=== PATIENT | male | born 1940 | race Caucasian/White ===

== ENCOUNTER 2016-11-12 06:41 | Observation (INO) | payer MEDICARE, OTHER ==
[2016-11-12] MEDS ORDERED: ASPIRIN 81 MG TABLET, CHEWABLE PO ONE (07:03)
[2016-11-12 07:21] LABS: PROTHROMBIN TIME 12.7 SEC (11.4-15.4)
[2016-11-12 07:25] LABS: ABSOLUTE BASOPHILS # (AUTO) 0.1 10^3/uL (0.0-0.2); ABSOLUTE EOSINOPHILS # (AUTO) 0.3 10^3/uL (0.0-0.6); ABSOLUTE LYMPHOCYTES (AUTO) 3.3 10^3/uL (0.5-4.7); ABSOLUTE MONOCYTES (AUTO) 0.8 10^3/uL (0.1-1.4); ABSOLUTE NEUT (AUTO) 6.2 10^3/uL (1.7-8.2); BASOPHILS % (AUTO) 0.9 % (0-2); HEMATOCRIT 38.2 % (37.9-51.0); HEMOGLOBIN 13.1 g/dL (13.5-17.0); HGB HCT DIFFERENCE 1.1; LYMPHOCYTES % (AUTO) 31.1 % (13-45); MEAN CORPUSCULAR HEMOGLOBIN 32.6 pg (27.0-33.4); MEAN CORPUSCULAR HGB CONC 34.2 g/dL (32.0-36.0); MEAN CORPUSCULAR VOLUME 95 fl (80-97); MONOCYTES % (AUTO) 7.2 % (3-13); RED BLOOD COUNT 4.01 10^6/uL (4.35-5.55); RED CELL DISTRIBUTION WIDTH 14.2 % (11.5-14.0); SEGMENTED NEUTROPHILS % (AUTO) 57.8 % (42-78); WHITE BLOOD COUNT 10.7 10^3/uL (4.0-10.5)
[2016-11-12 07:26] LABS: ALANINE AMINOTRANSFERASE 29 U/L (21-72); ALKALINE PHOSPHATASE 94 U/L (38-126); ANION GAP 11 (5-19); ASPARTATE AMINO TRANSFERASE 20 U/L (17-59); BILIRUBIN,TOTAL 0.6 mg/dL (0.2-1.3); BLOOD UREA NITROGEN 11 mg/dL (7-20); CALCIUM 9.6 mg/dL (8.4-10.2); CARBON DIOXIDE 26 mmol/L (22-30); CHLORIDE 103 mmol/L (98-107); CREATINE KINASE 49 U/L (55-170); CREATININE RESULT 0.82 mg/dL (0.52-1.25); GLUCOSE 160 mg/dL (75-110); LIPASE 54.1 U/L (23-300); MAGNESIUM 1.6 mg/dL (1.6-2.3); POTASSIUM 4.1 mmol/L (3.6-5.0)
[2016-11-12 07:37] LABS: CREATINE KINASE MB 1.59 ng/mL (<4.55)
[2016-11-12 07:41] LABS: TROPONIN I 0.078 ng/mL
--- NOTE | 2016-11-12 07:48 | ER Document Report ---
ED General - General Chief Complaint: Chest Pain Stated Complaint: CHEST PAIN - HPI Patient complains to provider of: chest pain Notes: Patient is coming in from local [facility] facility for evaluation of chest pain patient apparently has a history of dementia otherwise is alert states that he has had stents and cardiac testing in the past states chest pain substernal no radiation lasted for approximately an hour. EMS report otherwise only confirms the above patient complaining of chest pain. Pack of the paperwork that came with the patient shows possible recent admission to local hospital in [facility]. In talking to with the patient he is alert otherwise mildly confused. Patient states he is pain-free at this time. - Related Data Allergies/Adverse Reactions: acetaminophen [From Percocet] Adverse Reaction (Verified 11/12/16 07:37) atorvastatin [From Lipitor] Adverse Reaction (Verified 11/12/16 07:37) hydrochlorothiazide Adverse Reaction (Verified 11/12/16 07:37) oxycodone [From Percocet] Adverse Reaction (Verified 11/12/16 07:37) prednisone Adverse Reaction (Verified 11/12/16 07:37) simvastatin [From Zocor] Adverse Reaction (Verified 11/12/16 07:37) tramadol Adverse Reaction (Verified 11/12/16 07:37) zolpidem [From Ambien] Adverse Reaction (Verified 11/12/16 07:37) Home Medications: Current Home Medications Albuterol Sulfate [Proair HFA] 1 puff IH Q4HP PRN 11/12/16 [History] Aspirin [Ecotrin] 81 mg PO DAILY 11/12/16 [History] Cholecalciferol (Vitamin D3) [Vitamin D3 2000 unit Tablet] 4,000 unit PO DAILY 11/12/16 [History] Cyclobenzaprine HCl [Flexeril 10 mg Tablet] 5 mg PO TIDP PRN 11/12/16 [History] Escitalopram Oxalate [Lexapro] 20 mg PO DAILY 11/12/16 [History] Finasteride [Proscar] 5 mg PO DAILY 11/12/16 [History] Hydrochlorothiazide [Hydrodiuril 12.5 mg Capsule] 12.5 mg PO DAILY 11/12/16 [ History] Insulin Detemir [Levemir Flextouch] 42 units SQ QAM 11/12/16 [History] Liraglutide [Victoza 2-Vaughn] 1.8 mg SQ DAILY 11/12/16 [History] Lorazepam [Ativan] 1 mg PO QHS 11/12/16 [History] Metformin HCl [Metformin HCl ER] 1,000 mg PO BIDACBS 11/12/16 [History] Metoprolol Succinate [Toprol Xl 50 mg Tab.sr] 50 mg PO DAILY 11/12/16 [History] Nitroglycerin [Nitrostat 0.4 mg (1/150 Gr) Tabs 25/Bottle] 0.4 mg SL Q5MP PRN [History] Pitavastatin Calcium [Livalo] 4 mg PO QHS 11/12/16 [History] Quetiapine Fumarate [Seroquel 100 mg Tablet] 100 mg PO QHS 11/12/16 [History] Ramipril [Altace 10 mg Capsule] 10 mg PO QHS 11/12/16 [History] Ticagrelor [Brilinta] 90 mg PO Q12 11/12/16 [History] Past Medical History - Social History Smoking Status: Unknown if Ever Smoked Family History: Reviewed & Not Pertinent Review of Systems - Review of Systems -: Yes ROS unobtainable due to patient's medical condition - Dementia Physical Exam - Vital signs Vitals: Resp Pulse Ox 16 98 11/12/16 06:45 11/12/16 06:45 Interpretation: Normal - General General appearance: Appears well, Alert - HEENT Head: Normocephalic, Atraumatic Eyes: Normal Pupils: PERRL - Respiratory Respiratory status: No respiratory distress Chest status: Nontender Breath sounds: Normal Chest palpation: Normal - Cardiovascular Rhythm: Regular Heart sounds: Normal auscultation Murmur: No - Abdominal Inspection: Normal Distension: No distension Bowel sounds: Normal Tenderness: Nontender Organomegaly: No organomegaly - Back Back: Normal, Nontender - Extremities General upper extremity: Normal inspection, Nontender, Normal color, Normal ROM , Normal temperature General lower extremity: Normal inspection, Nontender, Normal color, Normal ROM , Normal temperature, Normal weight bearing. No: Jackeline's sign - Neurological Neuro grossly intact: Yes Armani Coma Scale Eye Opening: Spontaneous Armani Coma Scale Verbal: Confused Armani Coma Scale Motor: Obeys Commands Armani Coma Scale Total: 14 Speech: Normal Motor strength normal: LUE, RUE, LLE, RLE Sensory: Normal - Psychological Associated symptoms: Normal affect, Normal mood - Skin Skin Temperature: Warm Skin Moisture: Dry Skin Color: Normal Course - Re-evaluation Re-evalutation: 11/12/16 09:19 Patient initially arrived chest pain-free. Lab work performed EKG showed left bundle branch block. Records were obtained from [facility] for patient was recently admitted for psych be hyperosmolar encephalopathy due to poorly controlled diabetes. It is documented patient how a bundle branch block at that time. Upon reevaluation patient states he was having a little bit of left-sided chest pain. Nitrate was ordered for the patient patient did prescribe him chest pain- free with Nitropaste. Review the patient's past medical history from the report from [facility] shows the patient has had a stent drug-eluting and the RCA he's had bypass surgery unknown number of vessels with a aortic valve replacement. Possible tissue replacement as that patient is not on any anticoagulation nor does he have any significant heart murmur. Discussed with our hospitalist team. Will omit the patient for further evaluation 11/12/16 14:10 - Vital Signs Vital signs: Temp Pulse Resp BP Pulse Ox 98 F 14 134/66 H 96 11/12/16 07:30 11/12/16 13:01 11/12/16 13:01 11/12/16 13:01 - Laboratory Result Diagrams: 11/12/16 06:50 11/12/16 06:50 Laboratory results interpreted by me: 11/12/16 11/12/16 11/12/16 06:50 06:50 06:50 WBC 10.7 H RBC 4.01 L Hgb 13.1 L RDW 14.2 H Glucose 160 H Creatine Kinase 49 L NT-Pro-B Natriuret Pep 852 H Discharge - Discharge Clinical Impression: Vascular dementia Qualifiers: Dementia behavioral disturbance: without behavioral disturbance Qualified Code( s): F01.50 - Vascular dementia without behavioral disturbance Chest pain Qualifiers: Chest pain type: unspecified Qualified Code(s): R07.9 - Chest pain, unspecified Condition: Good Disposition: ADMITTED OBSERVATION Admitting Provider: Gretchen[facility] Unit Admitted: Telemetry
--- NOTE | 2016-11-12 08:05 | EKG REPORT ---
SEVERITY:- ABNORMAL ECG - SINUS RHYTHM VENTRICULAR PREMATURE COMPLEX LEFT BUNDLE BRANCH BLOCK : Confirmed by: Anshul Taylor MD 12-Nov-2016 08:04:27
[2016-11-12] MEDS ORDERED: NITROGLYCERIN 2% OINTMENT 1 GM PACKET TP ONE (08:36)
[2016-11-12] MEDS ORDERED: ONDANSETRON HCL INJ/PF 4 MG/2 ML SDV IV PRN (11:04)
--- NOTE | 2016-11-12 11:29 | PDOC H&P ---
History of Present Illness Admission Date/PCP: 11/12/16 10:47 Patient complains of: Chest pain History of Present Illness: REJI DEL ROSARIO is a 76 year old male, with diabetes, coronary artery disease, hypertension, presents to the hospital with chest pain earlier today. Patient is a patient from [facility] where he developed chest pain and was sent to the emergency room for evaluation. Chest pain is left-sided, with associated numbness in the right hand, without any shortness of breath, nor diaphoresis, nor palpitation. No nausea or vomiting. No dizziness or lightheadedness. The patient was evaluated by the emergency room physician. Aspirin and nitroglycerin was given and the chest pain resolved. Patient was then referred for observation. Past Medical History Past Medical History: Medication reconciliation pending verification from the patient's pharmacy. Cardiac Medical History: Reports: Coronary Artery Disease, Hyperlipidema, Hypertension Pulmonary Medical History: Reports: Chronic Obstructive Pulmonary Disease (COPD) Endocrine Medical History: Reports: Diabetes Mellitus Type 2 Past Surgical History Past Surgical History: Reports: Cardiac Catheterization, Coronary Artery Bypass Graft, Hip Replacement Social History Information Source: Patient Smoking Status: Former Smoker Last Time Smoked: 40 years ago Frequency of Alcohol Use: Occasional Hx Recreational Drug Use: No Drugs: None Hx Prescription Drug Abuse: No Family History Family History: None Parental Family History Reviewed: Yes Children Family History Reviewed: Yes Sibling(s) Family History Reviewed.: Yes Medication/Allergy Allergies/Adverse Reactions: acetaminophen [From Percocet] Adverse Reaction (Verified 11/12/16 07:37) atorvastatin [From Lipitor] Adverse Reaction (Verified 11/12/16 07:37) hydrochlorothiazide Adverse Reaction (Verified 11/12/16 07:37) oxycodone [From Percocet] Adverse Reaction (Verified 11/12/16 07:37) prednisone Adverse Reaction (Verified 11/12/16 07:37) simvastatin [From Zocor] Adverse Reaction (Verified 11/12/16 07:37) tramadol Adverse Reaction (Verified 11/12/16 07:37) zolpidem [From Ambien] Adverse Reaction (Verified 11/12/16 07:37) Review of Systems Constitutional: ABSENT: chills, fever(s), headache(s), weight gain, weight loss Eyes: ABSENT: visual disturbances Ears: ABSENT: hearing changes Nose, Mouth, and Throat: ABSENT: mouth pain, sore throat Cardiovascular: PRESENT: chest pain. ABSENT: dyspnea on exertion, edema, orthropnea, palpitations Respiratory: ABSENT: cough, hemoptysis Gastrointestinal: ABSENT: abdominal pain, constipation, diarrhea, hematemesis, hematochezia, melena, nausea, vomiting Genitourinary: ABSENT: dysuria, hematuria Musculoskeletal: ABSENT: joint swelling Integumentary: ABSENT: pruritus, rash, wounds Neurological: ABSENT: abnormal gait, abnormal speech, confusion, dizziness, focal weakness, syncope Psychiatric: ABSENT: anxiety, depression, homidical ideation, suicidal ideation Endocrine: ABSENT: cold intolerance, heat intolerance, polydipsia, polyuria Hematologic/Lymphatic: ABSENT: easy bleeding, easy bruising Physical Exam Vital Signs: Temp Pulse Resp BP Pulse Ox 98 F 18 162/100 H 94 11/12/16 07:30 11/12/16 09:02 11/12/16 09:02 11/12/16 09:02 General appearance: PRESENT: no acute distress, morbidly obese Head exam: PRESENT: atraumatic, normocephalic Eye exam: PRESENT: conjunctiva pink, EOMI, PERRLA. ABSENT: scleral icterus Ear exam: PRESENT: normal external ear exam Mouth exam: PRESENT: moist, neck supple, tongue midline Neck exam: ABSENT: carotid bruit, JVD, lymphadenopathy, thyromegaly Respiratory exam: PRESENT: clear to auscultation beatrice, other - No tenderness elicited in the chest wall. ABSENT: rales, rhonchi, wheezes Cardiovascular exam: PRESENT: RRR. ABSENT: diastolic murmur, rubs, systolic murmur Pulses: PRESENT: normal dorsalis pedis pul Vascular exam: PRESENT: normal capillary refill GI/Abdominal exam: PRESENT: normal bowel sounds, soft. ABSENT: distended, guarding, mass, organolmegaly, rebound, tenderness Rectal exam: PRESENT: deferred Extremities exam: PRESENT: full ROM. ABSENT: calf tenderness, clubbing, pedal edema Neurological exam: PRESENT: alert, awake, oriented to person, oriented to place , oriented to situation Psychiatric exam: PRESENT: appropriate affect, normal mood. ABSENT: homicidal ideation, suicidal ideation Skin exam: PRESENT: dry, intact, warm. ABSENT: cyanosis, rash Results Impressions: Chest X-Ray 11/12/16 07:03 IMPRESSION: NO ACUTE RADIOGRAPHIC FINDING IN THE CHEST. Assessment & Plan - Diagnosis (1) Chest pain Qualifiers: Chest pain type: unspecified Qualified Code(s): R07.9 - Chest pain, unspecified Is this a current diagnosis for this admission?: Yes (2) Vascular dementia Qualifiers: Dementia behavioral disturbance: without behavioral disturbance Qualified Code(s): F01.50 - Vascular dementia without behavioral disturbance Is this a current diagnosis for this admission?: Yes (3) Diabetes mellitus Qualifiers: Diabetes mellitus type: type 2 Diabetes mellitus complication status: with unspecified complications Diabetes mellitus long term care pharmacist insulin use: unspecified long term care pharmacist insulin use status Qualified Code(s): E11.8 - Type 2 diabetes mellitus with unspecified complications Is this a current diagnosis for this admission?: Yes (4) Hypertension Qualifiers: Hypertension type: essential hypertension Qualified Code(s): I10 - Essential (primary) hypertension Is this a current diagnosis for this admission?: Yes (5) Coronary artery disease Qualifiers: Coronary Disease-Associated Artery/Lesion type: [place] artery [place] vs. transplanted heart: unspecified whether barrow or transplanted heart Associated angina: angina presence unspecified Qualified Code(s): I25.10 - Atherosclerotic heart disease of [place] coronary artery without angina pectoris Is this a current diagnosis for this admission?: Yes (6) COPD (chronic obstructive pulmonary disease) Qualifiers: COPD type: unspecified COPD Qualified Code(s): J44.9 - Chronic obstructive pulmonary disease, unspecified Is this a current diagnosis for this admission?: Yes - Time Time Spent: 30 to 50 Minutes - Plan Summary Plan Summary: Patient will be admitted to observation. We will continue aspirin and nitroglycerin. Supplemental oxygen will be given. DVT prophylaxis with Lovenox will be placed. We will obtain cardiac enzymes 3 and if negative will proceed with a stress test. Further testing depends on the admission evaluation as outlined above.
[2016-11-12 13:02] LABS: CREATINE KINASE MB 1.19 ng/mL (<4.55); TROPONIN I 0.055 ng/mL
[2016-11-12] MEDS: NITROGLYCERIN 2% OINTMENT 1 GM PACKET TP SCH ×2 (13:02→18:11)
--- NOTE | 2016-11-12 15:31 | EKG REPORT ---
SEVERITY:- ABNORMAL ECG - PACEMAKER ATRIAL SPIKES , APVS. MULTIFORM VENTRICULAR PREMATURE COMPLEXES LEFT BUNDLE BRANCH BLOCK : Confirmed by: Anshul Taylor MD 12-Nov-2016 15:30:48
[2016-11-12] MEDS ORDERED: DOCUSATE SODIUM 100 MG CAPSULE PO SCH (18:00)
[2016-11-12 20:08] LABS: CREATINE KINASE MB 1.36 ng/mL (<4.55); TROPONIN I 0.055 ng/mL
[2016-11-12 23:02] VITALS: BP 155/79
[2016-11-13] MEDS ORDERED: LANSOPRAZOLE 30 MG TAB.RAP.DR PO SCH (06:00)
[2016-11-13] MEDS ORDERED: ENOXAPARIN SODIUM INJ 40 MG/0.4 ML DISP.SYRIN SUBCUT SCH (08:00)
--- NOTE | 2016-11-13 09:11 | Progress Note ---
Provider Note Provider Note: 11/13/2016: I was contacted at 12:25 AM this morning by patient's emergency room nurse, stating that he had eloped at 9:15 PM on the . She had seen him in his emergency room suite at 9:10 PM, and when she returned approximately 5 minutes later after going to another patient's room, patient was gone. It was eventually discovered that patient had called a taxi and had been taken by taxi to his home in [place], with his . Patient was contacted at home and was noted to be safe and sound, so to speak. Emergency room staff contacted law enforcement about returning the gentleman to the emergency room, but since IVC papers had not been drawn up, this was not possible. Again, I was contacted by his emergency room nurse that patient had left the hospital just over 3 hours prior to my being contacted. This was my first notification of patient's leaving.
[2016-11-13] MEDS ORDERED: ASPIRIN 81 MG TABLET, CHEWABLE PO SCH (10:00)
== END 2016-11-13 22:10 | disposition left against medical advice (07) ==
LOC: ER 06:41 → UNDOADMOB 09:28 → EH 09:28
DX: R07.9 Chest pain, unspecified (principal); E11.9 Type 2 diabetes mellitus without complications; I25.10 Atherosclerotic heart disease of native coronary artery without angina pectoris; I10 Essential (primary) hypertension; J44.9 Chronic obstructive pulmonary disease, unspecified; Z87.891 Personal history of nicotine dependence; F01.50 Vascular dementia, unspecified severity, without behavioral disturbance, psychotic disturbance, mood disturbance, and anxiety; Z79.4 Long term (current) use of insulin; I44.7 Left bundle-branch block, unspecified; Z95.1 Presence of aortocoronary bypass graft
CPT/HCPCS: 93005; 99285; 36415; 82553; 82550; 83690; 83735; 85025; 85610; 80053; 84484; 83880; 71010; 93010; G0378; A9270